=== PATIENT | female | born 1950 | race Caucasian/White ===

== ENCOUNTER 2017-08-02 20:34 | Emergency (ER) | payer OTHER ==
[~2017-08-02] VITALS: Ht 160 cm; Wt 87.5 kg
[~2017-08-02 20:34] MED LIST: AVAPRO150 MG; PENTOXIFYLLINE400 MG
[2017-08-02] MEDS ORDERED: ALBUTEROL0.63 MG/3 (21:40)
[2017-08-02] MEDS ORDERED: SIMVASTATIN20 MG (21:40)
[2017-08-02] MEDS ORDERED: MONTELUKAST SOD10 MG (21:41)
[2017-08-03] MEDS ORDERED: ZYNCOF 20-400120 ML PO (03:52)
== END 2017-08-03 03:45 | disposition home or self-care (01) ==
LOC: ER 20:34
DX: J45.901 Unspecified asthma with (acute) exacerbation (principal)

== ENCOUNTER 2017-08-03 23:01 | Inpatient (IN) | payer OTHER ==
[~2017-08-03] VITALS: Ht 160 cm; Wt 94.3 kg
[~2017-08-03 23:01] MED LIST changes: +ALBUTEROL0.63 MG/3; +MONTELUKAST SOD10 MG; +SIMVASTATIN20 MG; +ZYNCOF 20-400120 ML PO
== END 2017-08-07 18:05 | disposition home or self-care (01) | DRG 202 ==
LOC: ER 23:01 → MEDI 08-04 10:35
PROC: 3E0F7GC Introduction of Other Therapeutic Substance into Respiratory Tract, Via Natural or Artificial Opening (ICD-10-PCS; principal; 2017-08-04)
DX: J45.41 Moderate persistent asthma with (acute) exacerbation (principal); B37.0 Candidal stomatitis; J20.9 Acute bronchitis, unspecified

== ENCOUNTER 2019-01-31 08:13 | Emergency (ER) | payer OTHER ==
[~2019-01-31] VITALS: Ht 160 cm; Wt 83.5 kg
[2019-01-31] MEDS ORDERED: LIPITOR40 MG (08:31)
[2019-01-31] MEDS ORDERED: LOSARTAN POTAS100 MG (08:32)
[2019-01-31] MEDS ORDERED: LEVOCETIRIZINE D5 MG (08:32)
== END 2019-01-31 09:27 | disposition home or self-care (01) ==
LOC: ER 08:13
DX: L20.89 Other atopic dermatitis (principal)

== ENCOUNTER 2019-11-26 13:09 | Emergency (ER) | payer OTHER ==
[~2019-11-26] VITALS: Ht 160 cm; Wt 90.7 kg
[~2019-11-26 13:09] MED LIST changes: +LEVOCETIRIZINE D5 MG; +LIPITOR40 MG; +LOSARTAN POTAS100 MG
[2019-11-26] MEDS ORDERED: KETO10TA2 PO (16:13)
== END 2019-11-26 17:00 | disposition home or self-care (01) ==
LOC: ER 13:09
DX: S93.512A Sprain of interphalangeal joint of left great toe, initial encounter (principal); X50.0XXA Overexertion from strenuous movement or load, initial encounter; Y93.89 Activity, other specified; Y92.89 Other specified places as the place of occurrence of the external cause; Y99.8 Other external cause status

== ENCOUNTER 2023-10-07 23:13 | Emergency (ER) | payer OTHER ==
[~2023-10-07] VITALS: Ht 160 cm; Wt 83.5 kg
[~2023-10-07 23:13] MED LIST changes: +KETO10TA2 PO
[2023-10-07] MEDS ORDERED: ACETAMINOPHEN 500 MG GEL..CAP PO ONE (23:31)
[2023-10-08] MEDS ORDERED: KETOROLAC TROMETHAMINE 60 MG VIAL IM STA (00:32)
[2023-10-08] MEDS ORDERED: KETOROLAC TROMETHAMINE 60 MG VIAL IM ONE (00:36)
[2023-10-08] MEDS ORDERED: ACETAMINOPHEN 500 MG GEL..CAP PO ONE (02:15)
[2023-10-08] MEDS ORDERED: IBUprofen 20 MG/ML BLIST.PACK (5ML) PO ONE (02:16)
[2023-10-08] MEDS ORDERED: TRAMADOL HCL50 MG PO (02:25)
[2023-10-08] MEDS ORDERED: KETO10TA2 PO (02:25)
[2023-10-11] MEDS ORDERED: HYDROCHLOROTHIA25 MG PO (09:07)
[2023-10-11] MEDS ORDERED: ELMIRON100 MG PO (09:08)
[2023-10-11] MEDS ORDERED: VERAPAMIL ER100 MG PO (09:08)
== END 2023-10-08 02:45 ==
LOC: ER 23:14
DX: S42.002A Fracture of unspecified part of left clavicle, initial encounter for closed fracture (principal); W06.XXXA Fall from bed, initial encounter; Y93.89 Activity, other specified; Y92.098 Other place in other non-institutional residence as the place of occurrence of the external cause; Y99.8 Other external cause status; I10 Essential (primary) hypertension; Z91.013 Allergy to seafood; Z91.041 Radiographic dye allergy status
CPT/HCPCS: 29105; 72040; 73000; 73060; 96372; 99283; J1885

== ENCOUNTER 2023-10-11 15:10 | Outpatient (CLI) | payer OTHER ==
[~2023-10-11 15:10] MED LIST changes: +ELMIRON100 MG PO; +HYDROCHLOROTHIA25 MG PO; +TRAMADOL HCL50 MG PO; +VERAPAMIL ER100 MG PO
== END 2023-10-11 15:18 | disposition home or self-care (01) ==
LOC: TOM 15:10
PROVIDERS: ATTEND Orthopaedic Surgery
DX: S42.022A Displaced fracture of shaft of left clavicle, initial encounter for closed fracture (principal); M25.512 Pain in left shoulder

== ENCOUNTER 2023-10-22 08:57 | Inpatient (IN) | payer OTHER ==
[2023-10-11 09:09] VITALS: BP 151/78
[2023-10-11 09:15] LABS: HEMATOCRIT 36.9 % (36.0-45.00); HEMOGLOBIN 12.3 g/dL (12.0-15.00); MEAN CELL VOLUME 85.1 fL (80.00-100.00); MEAN CORPUSCULAR HEMOGLOBIN 28.3 pg (27.00-32.0); MEAN CORPUSCULAR HGB CONC 33.2 g/dl (32.0-36.0); PLATELET COUNT 233 K/uL (150-450); RED BLOOD COUNT 4.33 M/uL (4.00-6.00); RED CELL DISTRIBUTION WIDTH 13.3 % (11.5-14.5)
[2023-10-11 09:33] LABS: PH,URINE 7.5 (5.0-8.0); URINE APPEARANCE Clear; URINE BILIRRUBIN Negative (NEGATIVE); URINE BLOOD Negative; URINE COLOR Yellow; URINE GLUCOSE Negative (NEGATIVE); URINE KETONE Negative (NEGATIVE); URINE LEUKOCYTE Negative; URINE NITRATE Negative; URINE PROTEIN Negative (NEGATIVE); URINE UROBILINOGEN 0.2 E.U./dl
[2023-10-11 09:34] LABS: PARTIAL THROMBOPLASTIN TIME 26.9 SECONDS (22.0-34.0); PROTHROMBIN TIME 10.9 SECONDS (9.0-11.5)
[2023-10-11 09:39] LABS: URINE EPITHELIAL CELLS 1.8 uL (0.0-38.8); URINE RBC 9.9 uL (0.0-20.8)
[2023-10-11 09:40] LABS: COL EPI 149 SECONDS (82-175)
[2023-10-11 09:41] LABS: URINE BACTERIA 3.7 uL (0.0-1933); URINE WBC 1.6 uL (0.0-23.2)
[2023-10-11 09:46] LABS: ALBUMIN 3.6 gm/dL (3.4-5.0); BILIRUBIN TOTAL 0.75 mg/dL (0.3-1.2); CALCIUM 9.1 mg/dL (8.5-10.1); CREATININE SERUM 0.79 mg/dL (0.55-1.02); GFR 71.54; GLOBULINA 3.9 G/DL (2.4-3.5); POTASSIUM 4.01 mEq/L (3.5-5.1); TOTAL PROTEIN 7.5 gm/dL (6.4-8.2)
[~2023-10-22] VITALS: Ht 160 cm; Wt 83.5 kg
[2023-10-22] MEDS ORDERED: CEFAZOLIN SODIUM 1,000 MG VIAL ONE (12:49)
[2023-10-22] MEDS ORDERED: LIDOCAINE HCL 1%/EPINEPHRINE 20ML VIAL IJ ONE (13:24)
[2023-10-22] MEDS ORDERED: CHLORHEXIDINE GLUCONATE 120 ML BOTTLE TOP ONE ×2 (13:24→15:30)
[2023-10-22] MEDS ORDERED: BUPIVACAINE HCL/MPF 0.5% 30ML VIAL ONE (13:24)
[2023-10-22] MEDS ORDERED: VANCOMYCIN HCL 1,000 MG VIAL ONE ×2 (13:24→21:22)
[2023-10-22] MEDS ORDERED: DIPHENHYDRAMINE HCL 50 MG/ML VIAL 1ML ONE (13:50)
[2023-10-22] MEDS ORDERED: VANCOMYCIN HCL 1,000 MG VIAL IV ONE (15:30)
[2023-10-22] MEDS ORDERED: DIPHENHYDRAMINE HCL 50 MG/ML VIAL 1ML IV ONE (15:45)
[2023-10-22] MEDS ORDERED: PROMETHAZINE HCL 50 MG/ML AMPUL IM PRN (17:30)
[2023-10-22] MEDS ORDERED: TRAMADOL HCL 50 MG TABLET PO PRN (17:30)
[2023-10-22] MEDS ORDERED: SODIUM CHLORIDE 0.45 % 1,000 ML IV SCH (17:30)
[2023-10-22] MEDS ORDERED: ONDANSETRON HCL 2 MG/ML VIAL IV PRN (17:30)
[2023-10-22] MEDS ORDERED: MEPERIDINE HCL/PF 50 MG/ML VIAL IM PRN (17:30)
[2023-10-22] MEDS ORDERED: ONDANSETRON 4 MG TAB.RAPDIS PO PRN (17:30)
[2023-10-22] MEDS ORDERED: MORPHINE SULFATE 4 MG/ML VIAL IV ONE ×2 (17:50→18:45)
[2023-10-22] MEDS ORDERED: KETOROLAC TROMETHAMINE 10 MG TABLET PO SCH (21:00)
[2023-10-22] MEDS ORDERED: ACETAMINOPHEN 325 MG TABLET PO SCH (21:00)
[2023-10-22] MEDS ORDERED: VANCOMYCIN HCL 1,000 MG VIAL IV SCH (21:00)
[2023-10-22] MEDS ORDERED: ENALAPRILAT DIHYDRATE 1.25 MG/ML VIAL IV PRN (21:30)
[2023-10-22 21:58] VITALS: BP 190/82; O2SAT 98
[2023-10-22 22:56] VITALS: BP 190/82
[2023-10-23] MEDS ORDERED: CELECOXIB 200 MG CAPSULE PO SCH (01:00)
[2023-10-23 02:07] VITALS: BP 162/68; O2SAT 96
[2023-10-23] MEDS ORDERED: DIPHENHYDRAMINE HCL 25 MG CAPSULE PO ONE (08:15)
[2023-10-23] MEDS ORDERED: DIPHENHYDRAMINE HCL 50 MG/ML VIAL 1ML ONE (08:27)
[2023-10-23 08:53] VITALS: BP 130/75; O2SAT 98
[2023-10-23] MEDS ORDERED: LOSARTAN POTASSIUM 100 MG TABLET PO SCH (09:00)
[2023-10-23] MEDS ORDERED: PANTOPRAZOLE SODIUM 40 MG TABLET.DR PO SCH (09:00)
== END 2023-10-23 12:35 | disposition home or self-care (01) | DRG 517 ==
LOC: CIR.AMB → O/R 18:09 → SURH 18:09
PROVIDERS: ADMIT Orthopaedic Surgery; ATTEND Orthopaedic Surgery
PROC: 0PSB04Z Reposition Left Clavicle with Internal Fixation Device, Open Approach (ICD-10-PCS; principal; 2023-10-22 15:15)
DX: S42.022A Displaced fracture of shaft of left clavicle, initial encounter for closed fracture (principal); Z20.822 Contact with and (suspected) exposure to COVID-19

== ENCOUNTER 2023-11-30 19:43 | Emergency (ER) | payer OTHER ==
[~2023-11-30] VITALS: Ht 160 cm; Wt 81.6 kg
== END 2023-11-30 22:28 | disposition home or self-care (01) ==
LOC: ER 19:43
DX: S39.82XA Other specified injuries of lower back, initial encounter (principal); X58.XXXA Exposure to other specified factors, initial encounter; Y93.89 Activity, other specified; Y92.89 Other specified places as the place of occurrence of the external cause; Y99.8 Other external cause status; M54.9 Dorsalgia, unspecified; Z91.013 Allergy to seafood; Z91.041 Radiographic dye allergy status

== ENCOUNTER 2024-01-24 08:23 | Outpatient (CLI) | payer OTHER | END 2024-01-24 08:26 | disposition home or self-care (01) | LOC: RAD 08:23 | PROVIDERS: ATTEND Orthopaedic Surgery | DX: S42.022D Displaced fracture of shaft of left clavicle, subsequent encounter for fracture with routine healing (principal) ==

== ENCOUNTER → 2024-03-21 07:37 | Outpatient (CLI) | payer OTHER ==
[2024-03-21 09:25] LABS: BILIRUBIN TOTAL 0.89 mg/dL (0.3-1.2); CALCIUM 10.5 mg/dL (8.5-10.1); CREATININE SERUM 0.87 mg/dL (0.55-1.02); GFR 63.82; GLOBULINA 3.7 G/DL (2.4-3.5); MAGNESIUM 1.7 mg/dL (1.8-2.4); POTASSIUM 4.35 mEq/L (3.5-5.1); TOTAL PROTEIN 7.7 gm/dL (6.4-8.2)
[2024-03-22 10:08] LABS: CALCIUM IONIZED 5.5 mg/dL (4.5-5.6)
== END | disposition home or self-care (01) ==
LOC: LAB 07:37
PROVIDERS: ATTEND Orthopaedic Surgery
DX: E55.9 Vitamin D deficiency, unspecified (principal); M85.9 Disorder of bone density and structure, unspecified; E56.1 Deficiency of vitamin K; E21.3 Hyperparathyroidism, unspecified; E88.89 Other specified metabolic disorders; M81.8 Other osteoporosis without current pathological fracture

== ENCOUNTER 2024-05-28 11:27 | Outpatient (CLI) | payer OTHER | END 2024-05-28 11:28 | disposition home or self-care (01) | LOC: RAD 11:27 | PROVIDERS: ATTEND Orthopaedic Surgery | DX: S42.022G Displaced fracture of shaft of left clavicle, subsequent encounter for fracture with delayed healing (principal); X58.XXXD Exposure to other specified factors, subsequent encounter ==

== ENCOUNTER 2024-07-08 12:00 | Emergency (ER) | payer OTHER ==
[~2024-07-08] VITALS: Ht 160 cm; Wt 77.1 kg
[2024-07-08] MEDS ORDERED: CELEXA10 MG PO (12:43)
[2024-07-08] MEDS ORDERED: BUSPIRONE HCL7.5 MG (12:44)
[2024-07-08] MEDS ORDERED: CEFTRIAXONE SODIUM 1,000 MG VIAL IM ONE (13:30)
[2024-07-08] MEDS ORDERED: PHENAZOPYRIDINE HCL 100 MG TABLET PO ONE ×2 (13:30→13:43)
[2024-07-08] MEDS ORDERED: TAMSULOSIN HCL 0.4 MG CAP PO ONE ×2 (13:30→13:43)
[2024-07-08] MEDS ORDERED: LIDOCAINE HCL 1% 10ML VIAL ONE (13:43)
[2024-07-08] MEDS ORDERED: CEFTRIAXONE SODIUM 1,000 MG VIAL ONE (13:44)
[2024-07-08 14:17] LABS: BASO % 0.6 % (0.1-1.2); EOS # 0.52 (0.04-0.54); EOS % 5.8 % (0.7-7.0); HEMATOCRIT 36.8 % (34.1-44.9); HEMOGLOBIN 11.9 g/dL (11.2-15.7); LYMPH # 1.12 (1.18-3.74); LYMPH % 12.4 % (19.3-53.1); MEAN CORPUSCULAR HEMOGLOBIN 27.8 pg (25.6-32.2); MONO # 0.82 (0.24-0.82); MONO % 9.1 % (4.7-12.5); NEUT # 6.51 (1.56-6.13); NEUT % 71.9 % (34.0-71.1); PLATELET COUNT 254 K/uL (163-369); RED BLOOD COUNT 4.28 M/uL (3.93-5.22); RED CELL DISTRIBUTION WIDTH 12.7 % (11.6-14.4)
[2024-07-08 14:23] LABS: URINE APPEARANCE Clear; URINE BILIRRUBIN Negative (NEGATIVE); URINE BLOOD Small; URINE COLOR Yellow; URINE GLUCOSE Negative (NEGATIVE); URINE KETONE Negative (NEGATIVE); URINE LEUKOCYTE Moderate; URINE NITRATE Negative; URINE PROTEIN Negative (NEGATIVE); URINE UROBILINOGEN 0.2 E.U./dl
[2024-07-08 14:26] LABS: URINE BACTERIA 489.4 uL (0.0-1933); URINE EPITHELIAL CELLS 2.2 uL (0.0-38.8); URINE RBC 212.8 uL (0.0-20.8); URINE WBC 431.7 uL (0.0-23.2)
[2024-07-08] MEDS ORDERED: PROTONIX40 MG PO (14:52)
[2024-07-08] MEDS ORDERED: BACTRIM DS TAB1 EACH PO (14:52)
[2024-07-08] MEDS ORDERED: PYRIDIUM DS200 MG PO (14:52)
== END 2024-07-08 15:42 | disposition home or self-care (01) ==
LOC: ER 12:11
PROVIDERS: General Practice
DX: N39.0 Urinary tract infection, site not specified (principal); I10 Essential (primary) hypertension; Z91.013 Allergy to seafood; Z91.041 Radiographic dye allergy status; Z91.018 Allergy to other foods
CPT/HCPCS: 36415; 96372; 99282; J0696

== ENCOUNTER 2024-09-18 12:40 | Outpatient (CLI) | payer OTHER ==
[~2024-09-18 12:40] MED LIST changes: +BACTRIM DS TAB1 EACH PO; +BUSPIRONE HCL7.5 MG; +CELEXA10 MG PO; +PROTONIX40 MG PO; +PYRIDIUM DS200 MG PO
== END 2024-09-18 12:45 | disposition home or self-care (01) ==
LOC: RAD 12:40
PROVIDERS: ATTEND Orthopaedic Surgery
DX: S42.002G Fracture of unspecified part of left clavicle, subsequent encounter for fracture with delayed healing (principal)